=== PATIENT | female | born 1995 | race Caucasian/White ===

== ENCOUNTER → 2016-11-27 | Outpatient (CLI) | payer BC ==
[~2016-11-27] MED LIST: CAL MA PLUS PO; CARI350T27 PO; FEXO1TAB45 PO; IODINE PO; PRAS1CAP PO; PRED-301 PO; STRESS PO; THY/60 PO; [UNRECOGNIZED DRUG - OTHER] PO; [UNRECOGNIZED DRUG - OTHER] PO; [UNRECOGNIZED DRUG - OTHER] PO
== END | disposition home or self-care (01) ==
LOC: C.LAB 14:12
PROVIDERS: ATTEND Internal Medicine Rheumatology
DX: R80.9 Proteinuria, unspecified (principal)

== ENCOUNTER → 2016-12-28 | Outpatient (CLI) | payer BC ==
[2016-12-28 15:14] LABS: BLOOD UREA NITROGEN 11 mg/dl (7-18); BUN/CREATININE RATIO 20.8 (10-20); CALCIUM 8.4 mg/dl (8.5-10.1); CARBON DIOXIDE 28 mmol/L (21-32); CHLORIDE 106 mmol/L (98-107); CREATININE 0.51 mg/dl (0.60-1.20); GLUCOSE 79 mg/dl (70-99); POTASSIUM 3.7 mmol/L (3.5-5.1); SODIUM 142 mmol/L (136-145)
[2016-12-28 15:15] LABS: URINE TOTAL PROTEIN 41.4 mg/dl (0-11.9)
--- NOTE | 2016-12-30 11:34 | CODING QUERY NO DIAGNOSIS ---
TREATMENT RENDERED WITHOUT A DIAGNOSIS Dr. Barnes, To promote full compliance with coding requirements relating to patient care, physician participation is requested in all cases of insurance service representative uncertainty. Please assist us with providing a diagnosis/symptom for the test(s) below: A diagnosis/symptom was not documented on your Order. A valid diagnosis/symptom is required to bill all insurances. Please remember that we are unable to code a diagnosis of rule out, probable, possible, questionable, or suspected. Tests that require a diagnosis: * BASIC METABOLIC PROFILE DIAGNOSIS: * VOLUME MEASUREMENT DIAGNOSIS: DATE OF SERVICE: 12/28/16 Provider Signature: Date: Thank you Rufino Pacheco [facility] Information Management Once completed, please kindly fax back to [phone] For questions please call [phone]
== END | disposition home or self-care (01) ==
LOC: C.LAB 13:27
PROVIDERS: ATTEND Internal Medicine Nephrology
DX: R80.9 Proteinuria, unspecified (principal); M32.9 Systemic lupus erythematosus, unspecified

== ENCOUNTER → 2017-01-05 | Outpatient (CLI) | payer BC ==
[2017-01-05 14:40] LABS: BASO % 0.2 %; BASO ABS # 0.01 K/uL (0-0.2); COMPLETE YES; EOS % 0.6 %; HEMATOCRIT 38.3 % (37-47); IG% 0.9 %; LYMPH % 13.6 %; LYMPH ABS # 0.74 K/uL (1.2-3.4); MEAN CORPUSCULAR HEMOGLOBIN 30.4 pg (25-34); MEAN CORPUSCULAR HGB CONC 33.4 g/dl (32-36); MEAN PLATELET VOLUME 10.3 fL (7.4-10.4); MONO % 9.2 %; NEUT % 75.5 %; PLATELET COUNT 263 K/uL (130-400); RED BLOOD COUNT 4.21 M/uL (4.2-5.4); WHITE BLOOD COUNT 5.43 K/uL (4.8-10.8)
[2017-01-05 14:51] LABS: INR 0.9 (0.9-1.1); PARTIAL THROMBOPLASTIN RATIO 0.9
[2017-01-05 14:52] LABS: BLOOD UREA NITROGEN 13 mg/dl (7-18); BUN/CREATININE RATIO 23.1 (10-20); CALCIUM 8.4 mg/dl (8.5-10.1); CARBON DIOXIDE 30 mmol/L (21-32); CHLORIDE 106 mmol/L (98-107); CREATININE 0.58 mg/dl (0.60-1.20); GLUCOSE 69 mg/dl (70-99); POTASSIUM 3.8 mmol/L (3.5-5.1); SODIUM 142 mmol/L (136-145)
== END | disposition home or self-care (01) ==
LOC: C.LAB 13:07
PROVIDERS: ATTEND Internal Medicine Nephrology
DX: R80.9 Proteinuria, unspecified (principal); M32.9 Systemic lupus erythematosus, unspecified

== ENCOUNTER → 2017-01-08 | Outpatient (CLI) | payer BC ==
--- NOTE | 2017-01-08 14:52 | DIAGNOSTIC IMAGING REPORT ---
CHEST 2 VIEWS ROUTINE CLINICAL HISTORY: Preoperative chest COMPARISON STUDY: No previous studies for comparison. FINDINGS: The cardiac and mediastinal contours are normal. There is no evidence of focal pulmonary consolidation. There is no evidence of failure. No pleural effusions are visualized.[ IMPRESSION: No active disease in the chest. Electronically signed by: Leonardo Watkins M.D. 01/08/2017 2:51 PM Dictated Date/Time: 01/08/2017 2:50 PM
== END | disposition home or self-care (01) ==
LOC: C.RAD 14:15
PROVIDERS: ATTEND Internal Medicine Nephrology
DX: Z01.818 Encounter for other preprocedural examination (principal)

== ENCOUNTER → 2017-02-19 | Outpatient (CLI) | payer BC ==
[2017-02-19 14:37] LABS: BASO % 0.1 %; BASO ABS # 0.01 K/uL (0-0.2); COMPLETE YES; EOS % 0.2 %; HEMATOCRIT 38.9 % (37-47); IG% 0.4 %; LYMPH % 4.7 %; LYMPH ABS # 0.38 K/uL (1.2-3.4); MEAN CELL VOLUME 93.3 fL (80-100); MEAN CORPUSCULAR HEMOGLOBIN 30.7 pg (25-34); MEAN CORPUSCULAR HGB CONC 32.9 g/dl (32-36); MEAN PLATELET VOLUME 9.9 fL (7.4-10.4); MONO % 1.9 %; NEUT % 92.7 %; PLATELET COUNT 295 K/uL (130-400); RED BLOOD COUNT 4.17 M/uL (4.2-5.4); WHITE BLOOD COUNT 8.05 K/uL (4.8-10.8)
[2017-02-19 14:57] LABS: URINE APPEARANCE CLEAR (CLEAR); URINE BILIRUBIN NEG (NEG); URINE COLOR DK YELLOW; URINE EPITHELIAL CELL AUTO >30 /lpf (0-5); URINE NITRITE NEG (NEG); URINE SPECIFIC GRAVITY 1.012 (1.000-1.030); UROBILINOGEN NEG (NEG)
[2017-02-19 15:05] LABS: ALT/SGPT 41 U/L (12-78); AST/SGOT 26 U/L (15-37); BLOOD UREA NITROGEN 12 mg/dl (7-18); BUN/CREATININE RATIO 19.5 (10-20); CARBON DIOXIDE 32 mmol/L (21-32); CHLORIDE 104 mmol/L (98-107); CREATININE 0.63 mg/dl (0.60-1.20); GLUCOSE 70 mg/dl (70-99); MANUAL MICROSCOPIC REQUIRED? NO; POTASSIUM 3.7 mmol/L (3.5-5.1); REVIEW REQ? NO; SODIUM 142 mmol/L (136-145)
[2017-02-19 15:07] LABS: ALKALINE PHOSPHATASE 40 U/L (45-117)
== END | disposition home or self-care (01) ==
LOC: C.LAB 13:06
PROVIDERS: ATTEND Internal Medicine Rheumatology
DX: L65.9 Nonscarring hair loss, unspecified (principal); M32.14 Glomerular disease in systemic lupus erythematosus; Z79.899 Other long term (current) drug therapy

== ENCOUNTER → 2017-03-09 | Outpatient (CLI) | payer BC | END | disposition home or self-care (01) | LOC: C.MAMM 13:17 | PROVIDERS: ATTEND Internal Medicine Rheumatology | DX: Z79.52 Long term (current) use of systemic steroids (principal) ==

== ENCOUNTER → 2017-05-11 | Outpatient (CLI) | payer BC ==
[2017-05-11 18:59] LABS: BASO % 0.2 %; BASO ABS # 0.01 K/uL (0-0.2); COMPLETE YES; EOS % 0.2 %; HEMATOCRIT 35.4 % (37-47); IG% 0.2 %; LYMPH % 5.6 %; LYMPH ABS # 0.24 K/uL (1.2-3.4); MEAN CELL VOLUME 94.1 fL (80-100); MEAN CORPUSCULAR HEMOGLOBIN 32.4 pg (25-34); MEAN CORPUSCULAR HGB CONC 34.5 g/dl (32-36); MEAN PLATELET VOLUME 10.2 fL (7.4-10.4); MONO % 6.8 %; PLATELET COUNT 234 K/uL (130-400); RED BLOOD COUNT 3.76 M/uL (4.2-5.4); WHITE BLOOD COUNT 4.28 K/uL (4.8-10.8)
[2017-05-11 19:23] LABS: ALT/SGPT 20 U/L (12-78); CREATININE 0.64 mg/dl (0.60-1.20); URINE PROTIEN/CREAT RATIO 2.4 (0-0.2)
[2017-05-11 19:26] LABS: ALKALINE PHOSPHATASE 44 U/L (45-117); AST/SGOT 19 U/L (15-37)
== END | disposition home or self-care (01) ==
LOC: C.LAB 17:44
PROVIDERS: ATTEND Internal Medicine Rheumatology
DX: M32.14 Glomerular disease in systemic lupus erythematosus (principal); Z79.899 Other long term (current) drug therapy

== ENCOUNTER → 2017-09-02 | Outpatient (CLI) | payer BC ==
[2017-09-02 09:43] LABS: PREG INTERNAL NEGATIVE QC NEG CLEAR BACKGROUND; PREG INTERNAL POSITIVE QC POS CONTROL LINE
[2017-09-02 10:01] LABS: CREATININE RANDOM URINE 97.9 mg/dl
== END | disposition home or self-care (01) ==
LOC: C.LAB 08:15
PROVIDERS: ATTEND Internal Medicine Rheumatology
DX: R80.8 Other proteinuria (principal)